=== PATIENT | female | born 1965 | race Caucasian/White ===

== ENCOUNTER 2017-07-02 04:35 | Emergency (ER) | payer OTHER ==
[~2017-07-02] VITALS: Ht 157.5 cm; Wt 120.0 kg
[2017-07-02 04:50] VITALS: BP 132/64; PULSE 95; RESP 18; TEMP 97.9; O2SAT 98
[2017-07-02] MEDS ORDERED: TRAZ100T6 PO (05:00)
[2017-07-02] MEDS ORDERED: SERO300T PO (05:01)
[2017-07-02] MEDS ORDERED: PAXI30TA7 PO (05:01)
[2017-07-02] MEDS ORDERED: ALPR.5 PO (05:02)
[2017-07-02] MEDS ORDERED: ZIPR20 PO (05:02)
[2017-07-02 05:22] LABS: AUTOMATED NEUTROPHIL # 6.7 TH/MM3 (1.8-7.7); BASOPHIL # 0.1 TH/MM3 (0-0.2); BASOPHIL % 0.6 % (0.0-2.0); EOSINOPHIL # 0.1 TH/MM3 (0-0.4); HEMATOCRIT 40.7 % (35.0-46.0); LYMPH % 28.6 % (9.0-44.0); MEAN CELL VOLUME 87.5 FL (80.0-100.0); MEAN CORPUSCULAR HEMOGLOBIN 30.5 PG (27.0-34.0); MEAN CORPUSCULAR HGB CONC 34.9 % (32.0-36.0); MONO % 5.5 % (0.0-8.0); NEUT % 64.3 % (16.0-70.0); PLATELET COUNT 354 TH/MM3 (150-450); RED BLOOD COUNT 4.65 MIL/MM3 (4.00-5.30); RED CELL DISTRIBUTION WIDTH 14.7 % (11.6-17.2); WHITE BLOOD COUNT 10.5 TH/MM3 (4.0-11.0)
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
[2017-07-02 05:25] LABS: HEMO FLAGS AUTO DIFF
[2017-07-02 05:31] LABS: AMPHETAMINE, URINE NEG (NEG); BARBITURATES, URINE NEG (NEG); COCAINE, URINE NEG (NEG)
[2017-07-02 05:55] LABS: ANION GAP 7 MEQ/L (5-15); AST (GOT) 37 U/L (15-37); BLOOD UREA NITROGEN 6 MG/DL (7-18); CHLORIDE 100 MEQ/L (98-107); GLOMERULAR FILTRATION RATE 110 ML/MIN (>89); POTASSIUM 3.5 MEQ/L (3.5-5.1); SODIUM (NA) 134 MEQ/L (136-145)
[2017-07-02 05:56] LABS: ACETAMINOPHEN LESS THAN 2.0 MCG/ML (10.0-30.0); ALT (GPT) 45 U/L (10-53)
[2017-07-02 05:58] LABS: ALKALINE PHOSPHATASE 77 U/L (45-117); TOTAL BILIRUBIN ADULT 0.3 MG/DL (0.2-1.0)
[2017-07-02 06:10] LABS: BANDS 4 % (0-6); NEUTROPHIL # MANUAL DIFF 7.2 TH/MM3 (1.8-7.7); POLYS (SEG NEUTROPHILS) 65 % (16-70); WBC DIFF SAMPLE 100
[2017-07-02 06:11] LABS: PLATELET ESTIMATE SMEAR NORMAL (NORMAL); PLATELET MORPHOLOGY NORMAL (NORMAL); SCAN/DIFF FINAL DIFF MANUAL
[2017-07-02 06:24] VITALS: BP 135/67; PULSE 81; RESP 18; O2SAT 98
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
== END 2017-07-02 11:40 | disposition home or self-care (01) ==
LOC: NEPD 04:35
DX: F10.94 Alcohol use, unspecified with alcohol-induced mood disorder (principal); Y90.8 Blood alcohol level of 240 mg/100 ml or more; Z91.5 Personal history of self-harm
CPT/HCPCS: 80053; 80307; 84703; 85007; 85027; 99284

== ENCOUNTER 2017-07-02 11:43 | Inpatient (IN) | payer OTHER, MEDICARE ==
[~2017-07-02 11:43] MED LIST: ALPR.5 PO; PAXI30TA7 PO; SERO300T PO; TRAZ100T6 PO; ZIPR20 PO
[2017-07-02 11:46] VITALS: BP 135/78; PULSE 84; RESP 18; TEMP 98.2; O2SAT 99
[2017-07-02 12:52] VITALS: BP 139/92; PULSE 94; RESP 18; O2SAT 95
[2017-07-02 14:25] VITALS: BP 166/80; PULSE 91; RESP 18
[2017-07-02] MEDS ORDERED: BENZTROPINE MESYLATE 1 MG TAB PO PRN (16:45)
[2017-07-02] MEDS ORDERED: ALUMINUM/MAGNESIUM/SIMETH 30 ML CUP PO PRN (16:45)
[2017-07-02] MEDS ORDERED: MAGNESIUM HYDROXIDE SUSP 30 ML CUP PO PRN (16:45)
[2017-07-02] MEDS ORDERED: LORazepam 1 MG TAB PO PRN (16:45)
[2017-07-02] MEDS ORDERED: LORazepam 2 MG/ML VIAL IM PRN ×4 (16:45)
[2017-07-02] MEDS ORDERED: BENZTROPINE MESYLATE 2 MG/2 ML VIAL IM PRN (16:45)
[2017-07-02] MEDS ORDERED: LORazepam 2 MG TAB PO PRN (16:45)
[2017-07-02] MEDS ORDERED: FLUMAZENIL 0.5 MG/5 ML VIAL IV PUSH PRN (16:45)
[2017-07-02] MEDS ORDERED: ACETAMINOPHEN 325 MG TAB PO PRN (16:45)
[2017-07-02] MEDS ORDERED: ALBUTEROL SULFATE 90 MCG/ACT HFA 8 GM INHALER INH PRN (17:00)
[2017-07-02] MEDS ORDERED: PILL SPLITTER OTHER PRN (17:30)
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
[2017-07-02 19:48] VITALS: BP 136/70; PULSE 94; RESP 18
--- NOTE | 2017-07-02 19:52 | PD ---
HPI . depressed/suicide threats Chief Complaint: Psychiatric Symptoms Time Seen by Provider: 19:52 Travel History International Travel<30 days: No Contact w/Intl Traveler<30days: No Traveled to known affect area: No History of Present Illness HPI 51-year-old female who was seen earlier this morning and medically cleared and psych screen here with recurrent suicide threats. Patient tells me that she is not from this area and is living with a man for the past month. She tells me he has been getting on her nerves and she is extremely depressed. At this time she tells me she is not suicidal, but did threaten suicide earlier today. She has no intention of harming herself or anyone else. Apparently there are some issues and she will not be able to get back to [place], and has no vertigo nor does she have contact information for anyone to pick her up etc. She says that she doesn't know where else we she would go if she wasn't here in the hospital. She denies any other complaints at this current time. PFSH Past Medical History Asthma: Yes Anxiety: Yes Depression: Yes COPD: Yes Respiratory: Yes (asthma, copd) ?: Not : 3 Para: 3 Past Surgical History Section: No Cholecystectomy: Yes Other Surgery: Yes (kidney surgery reflux) Social History Alcohol Use: Yes Tobacco Use: Yes Substance Use: No Allergies-Medications (Allergen,Severity, Reaction): Coded Allergies: Wellbutrin (Verified Allergy, Unknown, 07/02/17) Reported Meds & Prescriptions Reported Meds & Active Scripts Active Reported Xanax (Alprazolam) 0.5 Mg Tab 0.5 Mg PO Q8H PRN Paxil (Paroxetine HCl) 30 Mg Tab 60 Mg PO HS Seroquel (Quetiapine Fumarate) 300 Mg Tab 300 Mg PO HS Review of Systems General / Constitutional: No: Fever Eyes: No: Visual changes HENT: No: Headaches Cardiovascular: No: Chest Pain or Discomfort Respiratory: No: Shortness of Breath Gastrointestinal: No: Abdominal Pain Genitourinary: No: Dysuria Musculoskeletal: No: Pain Skin: No Rash Neurologic: No: Weakness Psychiatric: Positive: Depression, Suicidal Ideations Endocrine: No: Polydipsia Hematologic/Lymphatic: No: Easy Bruising Physical Exam Narrative GENERAL: AAO x 3, no acute distress, Well-nourished, well-developed patient. SKIN: Warm and dry. No visible rashes or bruising. HEAD: Normocephalic and atraumatic. EYES: No scleral icterus. No injection or drainage. EOM intact, ENT: No nasal drainage noted. Mucous membranes pink. Airway patent. NECK: Supple, trachea midline. No JVD. CARDIOVASCULAR: Regular rate and rhythm without murmurs, gallops, or rubs. RESPIRATORY: Breath sounds equal bilaterally. No accessory muscle use. No rhonchi or rales. GASTROINTESTINAL: Abdomen soft, non-tender, nondistended. EXTREMITIES: No cyanosis or edema. BACK: No obvious deformity. NEURO: CN II-12 intact, rooming house inspector strength normal b/l, UE and LE 5/5, no focal deficits PSYCH: AAO x 3, flat affect . Data Data Last Documented VS Vital Signs Date Time Temp Pulse Resp B/P Pulse Ox O2 Delivery O2 Flow Rate FiO2 07/02/17 14:25 91 18 166/80 Room Air 07/02/17 12:52 95 07/02/17 11:46 98.2 Orders Diet Regular Basic (07/02/17 Dinner) [facility] Medical Decision Making Medical Screen Exam Complete: Yes Emergency Medical Condition: Yes Medical Record Reviewed: Yes Differential Diagnosis Depression, suicide ideation, malingering Narrative Course 51-year-old female here with depression. She has already been medically cleared earlier this morning. I have done an examination and there are no abnormalities. Labs have been reviewed. Patient medically cleared and has already been admitted for psychiatric workup and treatment. Diagnosis Primary Impression: Alcohol-induced mood disorder Condition: Stable Kate Sykes Jul 02, 2017 19:52
[2017-07-02] MEDS: PARoxetine HCL 20 MG TAB PO SCH (21:49)
[2017-07-02] MEDS: QUEtiapine FUMARATE 300 MG TAB PO SCH (21:49)
[2017-07-02] MEDS: traZODone HCL 100 MG TAB PO SCH (21:50)
[2017-07-02 23:09] VITALS: BP 151/90; PULSE 80; RESP 18; TEMP 97.9; O2SAT 97
[2017-07-02 23:11] VITALS: BP 151/90; PULSE 80; RESP 18; TEMP 97.7; O2SAT 97
[2017-07-03 06:29] VITALS: BP 123/59; PULSE 86; RESP 17; TEMP 98.6; O2SAT 96
[2017-07-03] MEDS: THIAMINE HCL 100 MG TAB PO SCH (08:58)
[2017-07-03] MEDS: FOLIC ACID 1 MG TAB PO SCH (08:58)
[2017-07-03] MEDS: ZIPRASIDONE HCL 20 MG CAP PO SCH (08:58)
[2017-07-03] MEDS: NICOTINE 21 MG/24 HR PATCH T-DERMAL SCH (08:59)
[2017-07-03] MEDS: REMOVE OLD PATCH T-DERMAL SCH (09:00)
[2017-07-03] MEDS: hydrOXYzine HCL 50 MG TAB PO PRN (12:00)
[2017-07-03 12:46] LABS: ANION GAP 5 MEQ/L (5-15); BLOOD UREA NITROGEN 10 MG/DL (7-18); CHLORIDE 104 MEQ/L (98-107); GLOMERULAR FILTRATION RATE 90 ML/MIN (>89); HDL CHOLESTEROL 49.6 MG/DL (40.0-60.0); LDL CHOLESTEROL 113 MG/DL (0-99); POTASSIUM 4.2 MEQ/L (3.5-5.1); SODIUM (NA) 141 MEQ/L (136-145)
[2017-07-03 14:54] LABS: HEMOGLOBIN A1a 1.1 %; HEMOGLOBIN A1b 1.7 %; HEMOGLOBIN Ao 85.6 %; HEMOGLOBIN P3 3.4 %
--- NOTE | 2017-07-03 15:02 | HHI.PYPN ---
Subjective Remarks Patient was seen and case discussed with nursing. CIWA is 0, no signs of alcohol withdrawal. No tremors, nausea, vomiting, auditory visual hallucinations. Patient denies suicidal ideation intent or plan. She remains depressed with an anxious affect. Preoccupied with her living situation after discharge. She is engaging with staff and compliant with her medications. Eating and sleeping well Objective Alert: Yes [place]: Person, Place, Date, Situation Mood: Anxious, Depressed Affect: Restricted Memory Intact: Immediate (intact) Hallucinations: Auditory (denies) Delusions: No Delusion Type: Other (no) Suicidal: Ideation (denies) Homicidal: Ideation (denies) Insight/Judgment Fair Labs Test 07/03/17 11:23 Sodium Level 141 MEQ/L Potassium Level 4.2 MEQ/L Chloride Level 104 MEQ/L Carbon Dioxide Level 32.0 MEQ/L Anion Gap 5 MEQ/L Blood Urea Nitrogen 10 MG/DL Creatinine 0.69 MG/DL Estimat Glomerular Filtration 90 ML/MIN Rate Random Glucose 94 MG/DL Calcium Level 9.0 MG/DL Triglycerides Level 157 MG/DL Cholesterol Level 194 MG/DL LDL Cholesterol 113 MG/DL HDL Cholesterol 49.6 MG/DL Cholesterol/HDL Ratio 3.91 RATIO Vitals/IOs Vital Signs Date Time Temp Pulse Resp B/P Pulse Ox O2 Delivery O2 Flow Rate FiO2 07/03/17 06:29 98.6 86 17 123/59 96 07/02/17 14:25 Room Air Assessment & Plan Problem List: (1) Adjustment disorder, unspecified ICD Code: F43.20 Assessment & Plan Continue current treatment plan Justification for Cont. Inpt. Patient would decompensate in a less restrictive setting Nathan Ortiz DO Jul 03, 2017 15:02
[2017-07-03 17:00] VITALS: BP 124/81; PULSE 80; RESP 18; TEMP 96.9; O2SAT 93
[2017-07-03] MEDS: QUEtiapine FUMARATE 300 MG TAB PO SCH (21:25)
[2017-07-03] MEDS: traZODone HCL 100 MG TAB PO SCH (21:25)
[2017-07-03] MEDS: PARoxetine HCL 20 MG TAB PO SCH (21:25)
[2017-07-04] MEDS: REMOVE OLD PATCH T-DERMAL SCH (09:00)
[2017-07-04] MEDS: FOLIC ACID 1 MG TAB PO SCH (09:01)
[2017-07-04] MEDS: THIAMINE HCL 100 MG TAB PO SCH (09:01)
[2017-07-04] MEDS: ZIPRASIDONE HCL 20 MG CAP PO SCH (09:01)
[2017-07-04] MEDS: hydrOXYzine HCL 50 MG TAB PO PRN (11:32)
[2017-07-04] MEDS: NICOTINE 21 MG/24 HR PATCH T-DERMAL SCH (11:32)
--- NOTE | 2017-07-04 13:33 | HHI.PYPN ---
Subjective Remarks Patient was seen and case discussed with nursing. Patient is seclusive to room. Remains concerned about her housing. Complaining of a lower abdominal rash. Her mood today is "panicky." Affect is anxious. She denies suicidal or homicidal ideation intent or plan. She was eating and did take a shower Objective Alert: Yes [place]: Person, Place, Date, Situation Mood: Anxious, Depressed Affect: Blunted Memory Intact: Immediate (intact) Hallucinations: Auditory (denies) Delusions: No Delusion Type: Other (no) Suicidal: Ideation (denies) Homicidal: Ideation (denies) Insight/Judgment Poor Vitals/IOs Vital Signs Date Time Temp Pulse Resp B/P Pulse Ox O2 Delivery O2 Flow Rate FiO2 07/03/17 17:00 96.9 80 18 124/81 93 07/02/17 14:25 Room Air Assessment & Plan Problem List: (1) Adjustment disorder, unspecified ICD Code: F43.20 Assessment & Plan Continue when necessary Atarax for anxiety Justification for Cont. Inpt. Patient would decompensate in a less restrictive setting Nathan Ortiz DO Jul 04, 2017 13:33
[2017-07-04 16:48] VITALS: BP 134/64; PULSE 87; RESP 18; TEMP 97.9; O2SAT 96
[2017-07-04] MEDS: predniSONE 20 MG TAB PO SCH (17:15)
[2017-07-04] MEDS ORDERED: RESP: ALBUTEROL 2.5 MG/IPRATROPIUM 0.5 MG NEB (PRN) NEB (17:15)
--- NOTE | 2017-07-04 17:15 | PD.CONS ---
HPI [facility] Consult Requested By Dr. Ortiz Reason for Consult Lower abdominal rash Primary Care Physician No Primary Care Physician Diagnoses: History of Present Illness Written by Bertha Francisco, acting as scribe for Dr. Rivera on 07/04/17 at 17: 14. This a 51-year-old female patient with past medical history which includes asthma, COPD, anxiety/depression and GERD. Patient is currently in inpatient psychiatric center after an argument with her boyfriend, she slit her wrist and is now backer acted. We have been consulted for assistance in medical management regarding a lower abdominal rash. Patient reports that she's gotten a rash like this before. Patient reports she gets these rashes when she doesn' t shower daily and reports she has not showered for approximately 3 days. Patient reports she first noticed this rash 2 days ago describes as a burning/ itching sensation. Patient reports the burning increases when she gets area wet. In the past patient has used cream to remedy the rash but unsure of the name. Patient feels that the rash seems to be getting worse. Patient also reports shortness of breath is worse than normal. She has an occasional cough which is productive of white/clear phlegm and reports she feels that she is wheezing when she lays flat. Patient does have COPD/asthma. Patient reports approximally once to twice a year she has an episode where she requires steroids. Patient reports she does not use oxygen on a daily basis and does not have oxygen concentrator at home. Patient does report she occasionally uses nebulizers but not on a daily basis. Patient denies chest pain nausea vomiting diarrhea constipation fevers or chills. Review of Systems Except as stated in HPI: all other systems reviewed are Neg Past Family Social History Allergies: Coded Allergies: Wellbutrin (Verified Allergy, Unknown, 07/02/17) Past Medical History asthma, COPD, anxiety/depression and GERD Past Surgical History Cholecystectomy and kidney surgery to treat ureteral reflux Reported Medications Xanax (Alprazolam) 0.5 Mg Tab 0.5 Mg PO Q8H PRN Paxil (Paroxetine HCl) 30 Mg Tab 60 Mg PO HS Seroquel (Quetiapine Fumarate) 300 Mg Tab 300 Mg PO HS Active Ordered Medications Current Medications Medications (Trade) Dose Ordered Sig/Jackie Route Start Time Stop Time Status Last Admin (Tylenol) 650 mg Q4H PRN PO 07/02/17 16:45 (Milk Of Magnesia Liq) 30 ml DAILY PRN PO 07/02/17 16:45 (Mag-Al Plus Susp Liq) 30 ml Q6H PRN PO 07/02/17 16:45 (Habitrol 21 Mg Patch.24 Hr) 1 patch DAILY T-DERMAL 07/03/17 09:00 07/04/17 11:32 (Atarax) 50 mg Q6H PRN PO 07/02/17 16:45 07/04/17 11:32 (Cogentin) 1 mg Q12H PRN PO 07/02/17 16:45 (Cogentin Inj) 1 mg Q12H PRN IM 07/02/17 16:45 (Romazicon Inj) 0.2 mg Q1M PRN IV PUSH 07/02/17 16:45 (Ativan) 1 mg Q4H PRN PO 07/02/17 16:45 07/02/17 20:09 (Ativan Inj) 1 mg Q4H PRN IM 07/02/17 16:45 (Ativan) 2 mg Q2H PRN PO 07/02/17 16:45 (Ativan Inj) 2 mg Q2H PRN IM 07/02/17 16:45 (Ativan Inj) 2 mg Q1H PRN IM 07/02/17 16:45 (Ativan Inj) 2 mg Q15M PRN IM 07/02/17 16:45 Miscellaneous Information 1 DAILY T-DERMAL 07/03/17 09:00 (Vitamin B1) 100 mg DAILY PO 07/03/17 09:00 07/04/17 09:01 (Folate) 1 mg DAILY PO 07/03/17 09:00 07/04/17 09:01 (SEROquel) 300 mg HS PO 07/02/17 21:00 07/03/17 21:25 (Paxil) 60 mg HS PO 07/02/17 21:00 07/03/17 21:25 (Desyrel) 150 mg HS PO 07/02/17 21:00 07/03/17 21:25 (Geodon) 20 mg DAILY PO 07/03/17 09:00 07/04/17 09:01 (Proair Hfa Inh) 2 puff Q4H PRN INH 07/02/17 17:00 (Pill Splitter) 1 ea UNSCH PRN OTHER 07/02/17 17:30 Family History Patient is adopted and does not know her biological family medical history Social History Patient reports she is a recovering alcoholic had not drank for approximately one year prior to the evening when she was brought in reports she had a relapse strength unknown amount of alcohol beer as well as mixed drinks. Patient reports she drank, "a lot." Patient smokes approximately one pack per day started spiking when she was a teenager she reports she has quit several times but has been unsuccessful and continues to smoke one pack per day at this time Denies illicit drug use Physical Exam Vital Signs Vital Signs Date Time Temp Pulse Resp B/P Pulse Ox O2 Delivery O2 Flow Rate FiO2 07/04/17 16:48 97.9 87 18 134/64 96 07/03/17 17:00 96.9 80 18 124/81 93 Physical Exam GENERAL: This is a obese, well-developed patient, in no apparent distress. SKIN: Between lower abdominal skin fold there is a erythematous rash with satellite lesions consistent with Aishwarya HEAD: Atraumatic. Normocephalic. No temporal or scalp tenderness. EYES: Extraocular motions intact. No scleral icterus. No injection or drainage. CARDIOVASCULAR: Regular rate and rhythm without murmurs, gallops, or rubs. RESPIRATORY: Diminished air movement throughout with expiratory wheezing in the bronchial area GASTROINTESTINAL: Abdomen soft, non-tender, nondistended. No guarding. MUSCULOSKELETAL: Extremities without clubbing, cyanosis, or edema. No joint tenderness, effusion, or edema noted. No calf tenderness. Negative Homans sign bilaterally. NEUROLOGICAL: Awake and alert. No focal deficits identified. Motor and sensory grossly within normal limits. Five out of 5 muscle strength in all muscle groups. Normal speech. Result Diagram: 07/03/17 1123 Assessment and Plan Problem List: (1) Candidiasis ICD Code: B37.9 Status: Acute (2) COPD exacerbation ICD Code: J44.1 Status: Acute Assessment and Plan This a 51-year-old female patient with past medical history which includes asthma, COPD, anxiety/depression and GERD. Patient is currently an inpatient psychiatric center after an argument with her boyfriend she cut her wrist and was shanks acted. We've been consulted for assistance in medical management regarding a lower abdominal rash- consistent with Aishwarya. Patient also has increase in shortness of breath from baseline associated with expiratory wheezing in occasional cough productive of white phlegm. Anxiety/depression Management per psychiatric team Candidiasis of lower abdominal skin fold Cleanse area daily with soap and water pat dry Nystatin cream to affected area Nystatin powder to bilateral breast folds also COPD exacerbation Prednisone 40 mg daily 4 days Duo nebs every 6 hours scheduled and every 4 hours as needed Hyperlipidemia total cholesterol 194, LDL 113 triglycerides 157 ASCVD risk calculation 4.1% 10 year ASCVD risk does not recommend initiating a statin therapy Patient counseled encouraged to eat healthy avoid high-fat high cholesterol foods Weight loss by putting high-fat high cholesterol foods and walking for light exercise 5 or more days per week Recommend patient to follow-up with PCP after discharge for further monitoring Tobacco abuse Patient counseled and encouraged to abstain Patient has nicotine patch at this time DVT prophylaxis patient is ambulatory and low risk This note was transcribed by kaden CANO. I, Dr. Radha Rivera personally performed the history, physical exam, and medical decision making; and confirmed the accuracy of the information in the transcribed note. Authenticated by Dr. Radha Rivera on 07/04/17 at 17:14. Bertha Francisco Jul 04, 2017 17:15 Radha Rivera MD Jul 04, 2017 19:54
[2017-07-04] MEDS: NYSTATIN 100,000 UNIT/GM CREAM 15 GM TOPICAL SCH (18:00)
[2017-07-04] MEDS: PARoxetine HCL 20 MG TAB PO SCH (20:30)
[2017-07-04] MEDS: QUEtiapine FUMARATE 300 MG TAB PO SCH (20:30)
[2017-07-04] MEDS: traZODone HCL 100 MG TAB PO SCH (20:30)
[2017-07-04] MEDS: NYSTATIN 100,000 U/GM PWD 15 GM BTL TOPICAL SCH (21:00)
[2017-07-04] MEDS: RESP: ALBUTEROL 2.5 MG/IPRATROPIUM 0.5 MG NEB (SCH) NEB (22:00)
[2017-07-05] MEDS: RESP: ALBUTEROL 2.5 MG/IPRATROPIUM 0.5 MG NEB (SCH) NEB ×4 (04:00→20:21)
[2017-07-05 05:27] VITALS: BP 102/67; PULSE 73; RESP 18; TEMP 97.9
[2017-07-05] MEDS: NYSTATIN 100,000 UNIT/GM CREAM 15 GM TOPICAL SCH ×4 (05:54→21:48)
[2017-07-05] MEDS: REMOVE OLD PATCH T-DERMAL SCH (09:00)
[2017-07-05] MEDS: THIAMINE HCL 100 MG TAB PO SCH (09:12)
[2017-07-05] MEDS: ZIPRASIDONE HCL 20 MG CAP PO SCH (09:12)
[2017-07-05] MEDS: predniSONE 20 MG TAB PO SCH (09:12)
[2017-07-05] MEDS: NYSTATIN 100,000 U/GM PWD 15 GM BTL TOPICAL SCH ×2 (09:12→20:53)
[2017-07-05] MEDS: FOLIC ACID 1 MG TAB PO SCH (09:12)
[2017-07-05] MEDS: NICOTINE 21 MG/24 HR PATCH T-DERMAL SCH (09:15)
--- NOTE | 2017-07-05 11:15 | HHI.PR ---
Subjective Remarks Follow up on patient with candidiasis. Patient seen and examined today. Patient reports rash is the same but less itchy. Denies any other complaints at this time. Denies any fever or chills. Denies any chest pain or SOB. Denies any N/V or abdominal pain. Objective Vitals Vital Signs Date Time Temp Pulse Resp B/P Pulse Ox O2 Delivery O2 Flow Rate FiO2 07/05/17 05:27 97.9 73 18 102/67 07/04/17 16:48 97.9 87 18 134/64 96 Result Diagram: 07/03/17 1123 Objective Remarks GENERAL: This is a obese, well-developed patient, in no apparent distress. Lying in hospital bed. SKIN: Between lower abdominal skin fold there is a erythematous rash with satellite lesions consistent with Aishwarya HEAD: Atraumatic. Normocephalic. EYES: Extraocular motions intact. No scleral icterus. No injection or drainage. CARDIOVASCULAR: Regular rate and rhythm without murmurs, gallops, or rubs. RESPIRATORY: Diminished air movement throughout with expiratory wheezing in the bronchial area, improving GASTROINTESTINAL: Abdomen soft, non-tender, nondistended. No guarding. MUSCULOSKELETAL: Extremities without clubbing, cyanosis, or edema. No joint tenderness, effusion, or edema noted. No calf tenderness. NEUROLOGICAL: Awake and alert. No focal deficits identified. Able to move all extremities. Normal speech. Medications and IVs Current Medications Medications (Trade) Dose Ordered Sig/Jackie Route Start Time Stop Time Status Last Admin (Tylenol) 650 mg Q4H PRN PO 07/02/17 16:45 (Milk Of Magnesia Liq) 30 ml DAILY PRN PO 07/02/17 16:45 (Mag-Al Plus Susp Liq) 30 ml Q6H PRN PO 07/02/17 16:45 (Habitrol 21 Mg Patch.24 Hr) 1 patch DAILY T-DERMAL 07/03/17 09:00 07/05/17 09:15 (Atarax) 50 mg Q6H PRN PO 07/02/17 16:45 07/04/17 11:32 (Cogentin) 1 mg Q12H PRN PO 07/02/17 16:45 (Cogentin Inj) 1 mg Q12H PRN IM 07/02/17 16:45 (Romazicon Inj) 0.2 mg Q1M PRN IV PUSH 07/02/17 16:45 (Ativan) 1 mg Q4H PRN PO 07/02/17 16:45 07/02/17 20:09 (Ativan Inj) 1 mg Q4H PRN IM 07/02/17 16:45 (Ativan) 2 mg Q2H PRN PO 07/02/17 16:45 (Ativan Inj) 2 mg Q2H PRN IM 07/02/17 16:45 (Ativan Inj) 2 mg Q1H PRN IM 07/02/17 16:45 (Ativan Inj) 2 mg Q15M PRN IM 07/02/17 16:45 Miscellaneous Information 1 DAILY T-DERMAL 07/03/17 09:00 07/05/17 09:00 (Vitamin B1) 100 mg DAILY PO 07/03/17 09:00 07/05/17 09:12 (Folate) 1 mg DAILY PO 07/03/17 09:00 07/05/17 09:12 (SEROquel) 300 mg HS PO 07/02/17 21:00 07/04/17 20:30 (Paxil) 60 mg HS PO 07/02/17 21:00 07/04/17 20:30 (Desyrel) 150 mg HS PO 07/02/17 21:00 07/04/17 20:30 (Geodon) 20 mg DAILY PO 07/03/17 09:00 07/05/17 09:12 (Proair Hfa Inh) 2 puff Q4H PRN INH 07/02/17 17:00 (Pill Splitter) 1 ea UNSCH PRN OTHER 07/02/17 17:30 (Deltasone) 40 mg DAILY PO 07/04/17 17:15 07/08/17 17:14 07/05/17 09:12 (Mycostatin Cream) 1 applic Q6HR TOPICAL 07/04/17 18:00 07/05/17 05:54 (Mycostatin Powder) 1 applic Q12HR TOPICAL 07/04/17 21:00 07/05/17 09:12 A/P Problem List: (1) Candidiasis ICD Code: B37.9 Status: Acute (2) COPD exacerbation ICD Code: J44.1 Status: Acute Assessment and Plan This a 51-year-old female patient with past medical history which includes asthma, COPD, anxiety/depression and GERD. Patient is currently an inpatient psychiatric center after an argument with her boyfriend she cut her wrist and was shanks acted. We've been consulted for assistance in medical management regarding a lower abdominal rash- consistent with Aishwarya. Patient also has increase in shortness of breath from baseline associated with expiratory wheezing in occasional cough productive of white phlegm. Anxiety/depression Management per psychiatric team Candidiasis of lower abdominal skin fold Cleanse area daily with soap and water pat dry Nystatin cream to affected area Nystatin powder to bilateral breast folds also COPD exacerbation Prednisone 40 mg daily 4 days Duo nebs every 6 hours scheduled and every 4 hours as needed Hyperlipidemia - total cholesterol 194, LDL 113 triglycerides 157 ASCVD risk calculation 4.1% 10 year ASCVD risk does not recommend initiating a statin therapy Patient counseled encouraged to eat healthy avoid high-fat high cholesterol foods Weight loss by putting high-fat high cholesterol foods and walking for light exercise 5 or more days per week Recommend patient to follow-up with PCP after discharge for further monitoring Tobacco abuse Patient counseled and encouraged to abstain Patient has nicotine patch at this time DVT prophylaxis patient is ambulatory and low risk Discussed with patient and Za Cosby Jul 05, 2017 11:15
--- NOTE | 2017-07-05 11:16 | HHI.PYPN ---
Subjective Remarks Patient seen and examined with nurse. Chart reviewed. Case discussed with nursing staff. No behavioral issues noted. On my exam, patient continues to complain of some anxiety and impaired concentration. More future oriented. No SI or HI. Denies side effects from medications. No physical complaints. Review of Systems Except as stated in HPI: all other systems reviewed are Neg Objective Alert: Yes [place]: Person, Place, Date, Situation Mood: Anxious (less), Depressed (improved) Affect: Blunted Memory Intact: Comment (intact) Hallucinations: Other (No AVH) Delusions: No Delusion Type: Other (No delusions) Suicidal: Ideation (No SI) Homicidal: Ideation (No HI) Insight/Judgment Fair Remarks No motoric abnormalities noted. No signs of withdrawal noted. Thought process linear. Grooming and hygiene fair. Labs Labs reviewed. Vitals/IOs Vital Signs Date Time Temp Pulse Resp B/P Pulse Ox O2 Delivery O2 Flow Rate FiO2 07/05/17 05:27 97.9 73 18 102/67 07/04/17 16:48 96 07/02/17 14:25 Room Air Assessment & Plan Problem List: (1) Adjustment disorder, unspecified ICD Code: F43.20 (2) Alcohol abuse ICD Code: F10.10 Assessment & Plan Continue current psychotropics as ordered. Patient declines offered medication adjustment. Appreciate hospitalist fashion consultant selling input. Continue other medications and care as ordered. Justification for Cont. Inpt. Monitoring for impairments in safety, none noted. Discharge Planning Possible discharge tomorrow, Wednesday. Request HC Surrog/Guard Advoc?: No Problem Qualifiers (1) Adjustment disorder, unspecified: Qualified Code: F43.20 - Adjustment disorder, unspecified type Nixon Pina MD Jul 05, 2017 11:15
[2017-07-05 15:30] VITALS: BP 114/70; PULSE 79; RESP 18; TEMP 97.1; O2SAT 95
[2017-07-05] MEDS: QUEtiapine FUMARATE 300 MG TAB PO SCH (20:51)
[2017-07-05] MEDS: traZODone HCL 100 MG TAB PO SCH (20:51)
[2017-07-05] MEDS: PARoxetine HCL 20 MG TAB PO SCH (20:52)
[2017-07-05] MEDS: hydrOXYzine HCL 50 MG TAB PO PRN (21:46)
[2017-07-06] MEDS: RESP: ALBUTEROL 2.5 MG/IPRATROPIUM 0.5 MG NEB (SCH) NEB ×2 (03:20→09:40)
[2017-07-06] MEDS: NYSTATIN 100,000 UNIT/GM CREAM 15 GM TOPICAL SCH ×2 (06:03→12:00)
[2017-07-06 06:13] VITALS: BP 113/54; PULSE 72; RESP 16; TEMP 97.9; O2SAT 92
[2017-07-06] MEDS: REMOVE OLD PATCH T-DERMAL SCH (09:00)
[2017-07-06] MEDS: NICOTINE 21 MG/24 HR PATCH T-DERMAL SCH (09:00)
[2017-07-06] MEDS: FOLIC ACID 1 MG TAB PO SCH (09:02)
[2017-07-06] MEDS: NYSTATIN 100,000 U/GM PWD 15 GM BTL TOPICAL SCH (09:02)
[2017-07-06] MEDS: predniSONE 20 MG TAB PO SCH (09:02)
[2017-07-06] MEDS: ZIPRASIDONE HCL 20 MG CAP PO SCH (09:02)
[2017-07-06] MEDS: THIAMINE HCL 100 MG TAB PO SCH (09:02)
[2017-07-06] MEDS ORDERED: PRED20 PO (13:06)
[2017-07-06] MEDS ORDERED: TRAZ50TA12 PO (13:06)
[2017-07-06] MEDS ORDERED: VENTAER INH (13:06)
[2017-07-06] MEDS ORDERED: ZIPR20 PO (13:06)
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
== END 2017-07-06 15:20 | disposition home or self-care (01) | DRG 882 ==
LOC: NEPJ 11:43 → NEDA 16:44 → H260 20:47
PROVIDERS: ADMIT Psychiatry & Neurology Psychiatry; ATTEND Psychiatry & Neurology Psychiatry
DX: F43.20 Adjustment disorder, unspecified (principal); R45.851 Suicidal ideations; J44.1 Chronic obstructive pulmonary disease with (acute) exacerbation; F10.14 Alcohol abuse with alcohol-induced mood disorder; B37.9 Candidiasis, unspecified; F17.210 Nicotine dependence, cigarettes, uncomplicated; F41.8 Other specified anxiety disorders; K21.9 Gastro-esophageal reflux disease without esophagitis; S61.512A Laceration without foreign body of left wrist, initial encounter; Z91.5 Personal history of self-harm; X78.1XXA Intentional self-harm by knife, initial encounter; Y92.9 Unspecified place or not applicable
CPT/HCPCS: 80048; 80061; 83036; 94664; 99283; J7512